=== PATIENT | female | born 1975 | race Two or more races ===

== ENCOUNTER 2016-04-15 22:23 | Inpatient (IN) | payer OTHER ==
[~2016-04-15] VITALS: Ht 165.1 cm; Wt 75.4 kg
--- NOTE | ~2016-04-15 | OR ---
PATIENT'S NAME: MATTHEW [facility] AGE: 40 [address] ROOM: [address] [address] LOCATION: GOBS ADMIT DATE: 04/15/2016 OR/Procedure Report DISCHARGE DATE: FAMILY PHYSICIAN: Marisa Camacho MD ATTENDING PHYSICIAN: Abundio Lees SURGEON: Marisa Camacho MD GEOLOGICAL AIDE: DATE OF PROCEDURE: 04/15/2016 DELIVERY NOTE: This 40-year-old G4, P2-0-1-2 delivered a healthy male in the SONIYA position with 1 nuchal cord that was reduced after delivery. The patient reports having contractions and some bloody show starting around 2000 hours this evening. She presented to the hospital around 2245 hours. She was found to be 7-cm dilated with a bulging bag of water. I was called at 2246 hours. While I was en route, at 2259 hours, she had spontaneous rupture of membranes of clear fluid. I arrived on the floor at approximately 2302 hours. She was completely dilated. The patient was refusing an IV at this time. Under normal sterile condition, I delivered the male . The patient had no epidural anesthesia. The delivered in the SONIYA position with 1 nuchal cord. Before I could reduce the cord, she delivered the body, and I was able to unwind the cord easily. Mouth and nares of the infant were suctioned. Cord was clamped and cut. Baby was vigorous and placed on mom's chest with nurse standing by. At this time, the patient did allow us to start an IV. IV was started. Placenta delivered shortly after, was found to be intact, with 3- blood vessel cord. Pitocin was started running through the IV. Uterus firmed up nicely. Perineum was inspected. There was a second-degree perineal laceration that was repaired in normal sterile fashion after I used 6 mL of 1% lidocaine with epinephrine to anesthetize the area and then I performed the closure with 3-0 Vicryl. There was approximately 300 mL EBL. Mom and remain in room with attending nurse. Mom does have a history of diet- controlled gestational diabetes. Blood sugar checks will follow hospital protocol. The patient was GBS positive. There was no sufficient time to start or complete the course of antibiotics for GBS status. We will need to monitor the baby at least 48 hours. The patient and her are aware of this requirements. MARISA CAMACHO MD PATIENT'S NAME: MATTHEW [facility] AGE: 40 Y [address] ROOM: [place] [address] LOCATION: [facility] ADMIT DATE: 04/15/2016 OR/Procedure Report DISCHARGE DATE: FAMILY PHYSICIAN: Marisa Camacho MD ATTENDING PHYSICIAN: Abundio Lees/kalpana /[id number] d: 04/16/16 0536 t: 05/07/16 0755, OPERATIVE SUMMARY
[2016-04-15 23:56] LABS: BASOPHIL # 0.1 K/uL (0.0-0.2); BASOPHIL % 0.3 %; EOSINOPHIL # 0.1 K/uL (0.0-0.5); EOSINOPHIL % 0.6 %; HEMATOCRIT 37.4 % (33.0-46.0); HEMOGLOBIN 12.7 g/dL (11.0-15.0); IMMATURE GRANULOCYTE # 0.1 K/uL (0.0-0.3); IMMATURE GRANULOCYTE % 0.6 %; LYMPHOCYTE # 2.9 K/uL (0.8-4.0); LYMPHOCYTE % 18.6 %; MCH 31.4 pg (27.0-34.0); MCV 92.3 fl (83.0-98.0); MONOCYTE # 0.7 K/uL (0.0-1.0); MONOCYTE % 4.2 %; MPV 11.1 fl (9.4-12.4); NEUTROPHIL # (ANC) 11.9 K/uL (1.8-7.8); NEUTROPHIL % 75.7 %; NRBC % 0 /100WBC (0-0.00); PLATELET COUNT 189 K/uL (150-450); RBC 4.05 M/uL (3.50-5.50); RDW-CV 13.9 % (11.9-14.6); WBC 15.7 K/uL (4.0-11.0)
[2016-04-16 05:29] LABS: BASOPHIL % 0.2 %; EOSINOPHIL % 0.1 %; HEMATOCRIT 32.3 % (33.0-46.0); HEMOGLOBIN 11.1 g/dL (11.0-15.0); IMMATURE GRANULOCYTE # 0.1 K/uL (0.0-0.3); IMMATURE GRANULOCYTE % 0.3 %; LYMPHOCYTE # 2.1 K/uL (0.8-4.0); LYMPHOCYTE % 12.1 %; MCH 31.1 pg (27.0-34.0); MCHC 34.4 gm/dL (32.0-36.5); MCV 90.5 fl (83.0-98.0); MONOCYTE # 0.8 K/uL (0.0-1.0); MONOCYTE % 4.6 %; MPV 10.8 fl (9.4-12.4); NEUTROPHIL # (ANC) 14.3 K/uL (1.8-7.8); NEUTROPHIL % 82.7 %; NRBC % 0 /100WBC (0-0.00); PLATELET COUNT 165 K/uL (150-450); RBC 3.57 M/uL (3.50-5.50); RDW-CV 13.5 % (11.9-14.6)
[2016-04-16 05:32] LABS: WBC 17.3 K/uL (4.0-11.0)
--- NOTE | 2016-04-16 06:02 | NUR ---
VSS, 1 Perc and Motrin at 0040, fundus firm, midline, small flow, GBS +, no ABX, Saline locked
[2016-04-16] MEDS ORDERED: PRENATAL 1+1)(P1 TAB PO (06:11)
--- NOTE | 2016-04-16 13:21 | NUR ---
Reviewed patient's chart. Patient had good care and no concerns noted in the chart. Will follow up with patient and offer supports as needed.
--- NOTE | 2016-04-16 18:03 | NUR ---
Significant Event: Follow up: vital signs are good. did have 1 temp. of 99.4. firm and even to 1 finger down. small flow. bottom looks good. I took her saline lock out this p.m. received her nipple creams. took Percocet at 0720 and a Percocet/Motrin at 1746. Will go home on because of not getting antibiotic for group B strep.
--- NOTE | 2016-04-17 03:54 | NUR ---
vss, fundus firm, at umbilicus, small flow. pt voids without difficulty. no pain meds given this shift. pt independent with cares. does not speak vietnamese but does.
--- NOTE | 2016-04-17 13:18 | NUR ---
Student charting read.
--- NOTE | 2016-04-17 14:08 | NUR ---
Jeanette, RN on OB shared with me that patient is going to stay one more night due to 's orders since baby is not able to be discharged until 2315 tonight. Jeanette is concerned that insurance will not cover the additional night. I called Xin Zaman and Diana in [place] and they do not think it will be a problem for the patient to stay one more night, but stressed that we cannot guarantee that insurace will cover the additional night. I had Aby Victor, pelt dropper go with me to see patient. Through Aby, we informed patient that we cannot guarantee that insurance will cover the additional night stay. We let her know that we do have the financial assistance application the family could fill out if insurance does not cover tonights stay. Patient and spouse did not seem worried about this. Through Aby I also instructed patient to contact their insurance and let them know that baby has been born. She also states that they have everything they need for baby and she has not concerns for discharge. Will continue to follow and offer supports as needed.
--- NOTE | 2016-04-18 05:22 | NUR ---
VSS, Tylenol at 0215
[2016-04-18] MEDS ORDERED: PERCOCET 5-3251 EACH PO (10:22)
[2016-04-18] MEDS ORDERED: APNO TOP (10:23)
[2016-04-18] MEDS ORDERED: SURFAK240 MG PO (10:23)
[2016-04-18] MEDS ORDERED: ACETAMINOPHEN325 MG PO (10:24)
[2016-04-18] MEDS ORDERED: MOTRIN800 MG PO (10:24)
== END 2016-04-18 11:30 | disposition disaster alternative care site (69) | DRG 775 ==
LOC: GOBS 22:23
PROVIDERS: Family Medicine; ADMIT Family Medicine
PROC: 10E0XZZ Delivery of Products of Conception, External Approach (ICD-10-PCS; principal; 2016-04-15)
PROC: 0KQM0ZZ Repair Perineum Muscle, Open Approach (ICD-10-PCS; 2016-04-16)
DX: O62.3 Precipitate labor (principal); O24.429 Gestational diabetes mellitus in childbirth, unspecified control; Z37.0 Single live birth; Z3A.39 39 weeks gestation of pregnancy; O99.824 Streptococcus B carrier state complicating childbirth; O09.523 Supervision of elderly multigravida, third trimester; O69.81X0 Labor and delivery complicated by cord around neck, without compression, not applicable or unspecified; O70.1 Second degree perineal laceration during delivery
CPT/HCPCS: J2540; J2590; J7120